=== PATIENT | male | born 1970 | race Caucasian/White ===

== ENCOUNTER 2018-05-17 07:17 | Observation (INO) ==
[2018-05-17] MEDS ORDERED: 0.9 % Sodium Chloride 1,000 ML IVC ONE (08:06)
--- NOTE | 2018-05-17 08:10 | Emergency Department Note ---
Disposition Clinical Impression: Ureterolithiasis Disposition: Admitted As Inpatient Condition: Undetermined Referrals: NONE,PCP [Primary Care Provider] - Forms: ED Satisfaction Letter, Work/School Release Time of Disposition: 10:07 Abdominal Pain HPI - General Chief Complaint: ED Abdominal Pain Stated Complaint: Kidney Stones Time Seen by Provider: 05/17/18 07:24 Source: patient, EMS Mode of arrival: EMS Limitations: no limitations Nursing Notes Reviewed: Yes Vital Signs Reviewed: Yes - History of Present Illness HPI Narrative: 48-year-old male with extensive history of kidney stones arrives to the emergency Department roughly 1.5 week after last ED visit for similar complaint. The patient is complaining of new left flank pain from previous visit. Previous visit roughly 1.5 weeks ago, the patient was noted to have a 5 mm right ureteral stone. Patient's urinalysis at that time revealed no signs of infection but culture grew Klebsiella. It seems clinically relevant as there are 10,000-100,000 colony-forming units. The patient states he is still able to angulate. The patient denies any dysuria or fevers. Patient denies any other complaints at this time. The patient has an appointment set up in roughly 7 days with urologist, Dr. Barnes. He is seen him in the past. He denies any other complaints at this time. Pain Scale: 10 - Related Data Previous Rx's Medication Instructions Recorded Cyclobenzaprine [Flexeril] 10 mg PO TID #15 tablet 12/08/16 Diclofenac Sodium [Voltaren] 50 mg PO Q8HR #30 tablet. 12/08/16 Tramadol HCl [Ultram] 50 mg PO Q6HR PRN #20 tab 12/08/16 Ondansetron ODT [Zofran ODT] 4 mg SL Q8HR PRN #12 tab.rapdis 02/04/17 Oxycodone HCl/Acetaminophen 1 each PO Q6HR PRN #8 tablet 02/04/17 [Percocet 5-325 mg Tablet] Dicyclomine [Bentyl] 20 mg PO QID #20 capsule 02/05/17 Ondansetron ODT [Zofran ODT] 4 mg SL Q6HR PRN #30 tab.rapdis 02/23/17 Naproxen [Naprosyn] 500 mg PO BID PRN #20 tablet 04/30/18 Ketorolac [Toradol] 10 mg PO Q6HR PRN #14 tablet 05/08/18 Ondansetron ODT [Zofran ODT] 4 mg SL Q6HR PRN #14 tab.rapdis 05/08/18 Oxycodone HCl/Acetaminophen 1 each PO Q4-6H PRN 2 Days #10 05/10/18 [Percocet 5-325 mg Tablet] tablet Allergies Allergy/AdvReac Type Severity Reaction Status Date / Time ibuprofen AdvReac Nausea Verified 05/17/18 07:20 All systems ED: reviewed and negative except as stated. Constitutional: Reports: weakness. Denies: fever, chills ENT ED: Denies: dysphagia Cardiovascular: Denies: chest pain Respiratory: Denies: dyspnea Gastrointestinal: Reports: abdominal pain, nausea. Denies: vomiting, diarrhea, constipation, hematemesis, melena, hematochezia Genitourinary: Reports: dysuria. Denies: urgency, frequency, hematuria, testicular pain, testicular mass Musculoskeletal: Denies: back pain, neck pain Integumentary: Denies: rash Neurological: Denies: headache Abdominal Pain PMH - Past Medical History Medical history: Reports: hyperlipidemia, kidney stones Male Surgical History: Reports: non-contributory, other Psychiatric history: Reports: anxiety - Social History Smoking status: Current every day smoker Alcohol use: Reports: occasionally Drug use: Reports: marijuana Physical Exam - General Limitations: no limitations General appearance: alert, in no apparent distress - Head Head exam: atraumatic, normocephalic, normal inspection - Eye Eye exam: Present: normal appearance, PERRL, EOMI - ENT ENT exam: normal exam, normal oropharynx, mucous membranes moist - Neck Neck exam: Present: normal inspection, full ROM, trachea midline - Chest Chest inspection: Present: normal inspection, symmetric chest wall rise - Respiratory Respiratory exam: Present: normal lung sounds bilaterally - Cardiovascular Cardiovascular exam: Present: regular rate, normal rhythm, normal heart sounds - Abdominal Exam Abdominal exam: Present: soft, Non-Tender. Absent: tenderness, distention, guarding, rebound, rigidity, pulsatile mass, hernia - Extremities Exam Extremities exam: Present: normal inspection, full ROM. Absent: tenderness, pedal edema - Back Exam Back exam: Present: normal inspection, full ROM. Absent: tenderness - Neurological Exam Neurological exam: Present: alert, oriented X3 - Skin Skin exam: Present: warm, dry, intact, normal color Course Vital Signs Temperature 98.2 F 05/17/18 07:20 Pulse Rate 90 05/17/18 07:20 Respiratory Rate 16 05/17/18 07:20 Blood Pressure 155/103 05/17/18 07:20 O2 Sat by Pulse Oximetry 99 05/17/18 07:20 Temperature 98.2 F 05/17/18 07:20 Pulse Rate 90 05/17/18 07:20 Respiratory Rate 16 05/17/18 07:20 Blood Pressure 155/103 05/17/18 07:20 O2 Sat by Pulse Oximetry 99 05/17/18 07:20 Oxygen Delivery Oxygen Delivery Room Air Abdominal Pain - MDM Narrative Medical decision making narrative: Patient's CT scan demonstrates a right sided ureteral stone. In addition the patient has no signs of urinary tract infection today and a normal creatinine and kidney function. The case was discussed with Dr. Ludwig in urology who recommended that the patient be admitted with continued symptoms. He stated that we should admit the patient to the hospitalist and he will see the patient consultation with likely stone removal tomorrow. The patient was made aware and agrees to plan. No further questions or concerns are noted at this time. We will admit the patient to the hospitalist, Dr. Stephens. - Medical Records Medical records reviewed: Yes I reviewed the patient's medical records. - Lab Data Lab results reviewed: Yes I reviewed the patient's lab results. Result diagrams: 05/17/18 07:55 05/17/18 07:55 Lab Results 05/17/18 05/17/18 05/17/18 Range/Units 07:55 07:55 07:55 Hgb 15.7 (12.9-16.9) g/dL Hct 44.3 (37.5-50.1) % Plt Count 186 (140-400) K/mcL Sodium 138 (136-145) mEq/L Potassium 4.0 (3.5-5.1) mEq/L Chloride 107 (98-107) mEq/L Carbon Dioxide 24 (23-29) mEq/L BUN 9 (6-20) mg/dL Creatinine 0.65 L (0.70-1.30) mg/dL Est GFR ( Amer) > 60 (> 60) Est GFR (Non-Af Amer) > 60 (> 60) BUN/Creatinine Ratio 14 (6-26) Glucose 90 (70-105) mg/dL Calculated Osmolality 284 (280-300) Calcium 9.0 (8.6-10.3) mg/dL Urine Color Yellow (Yellow) Urine Clarity Turbid A (Clear) Urine pH 7.5 (5.0-8.0) pH Units Ur Specific [place] 1.016 (1.010-1.025) Urine Protein Negative (Neg-Trace) mg/dL Urine Glucose (UA) Normal (Normal) mg/dL Urine Ketones Negative (Negative) mg/dL Urine Blood Negative (Negative) Urine Nitrite Negative (Negative) Urine Bilirubin Negative (Negative) Urine Urobilinogen Normal (Normal) mg/dL Ur Leukocyte Esterase Negative (Negative) Urine Microscopic RBC 3-5 H (0-3) per hpf Urine Microscopic WBC 0-3 (0-3) per hpf Ur Squamous Epith Cells None Seen (None-Few) per lpf Urine Bacteria None Seen (None-Few) per hpf Hyaline Casts None Seen (None-Few) per lpf Ur Culture Indicated? NO (NO) - Radiology Data Radiology results reviewed: Yes I reviewed the patient's radiology results. Abdomen/Pelvis CT 05/17/18 08:06 IMPRESSION: 1. 4 mm calculus in the distal right ureter without significant proximal hydroureteronephrosis. 2. Additional bilateral nonobstructing renal calculi. No left ureteral calculi. No left hydronephrosis. 3. 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 D/ / Sergio Pineda / Sergio Pineda Interpreting Provider: Sergio Pineda
[2018-05-17 08:19] LABS: Bilirubin,Urine Negative (Negative); Blood,Urine Negative (Negative); Clarity,Urine Turbid (Clear); Color,Urine Yellow (Yellow); Glucose,Urine (UA) Normal (Normal); Ketones,Urine Negative (Negative); Leukocyte Esterase,Urine Negative (Negative); Nitrite,Urine Negative (Negative); PH,Urine 7.5 pH Units (5.0-8.0); Protein,Urine Negative (Neg-Trace); Specific Gravity,Urine 1.016 (1.010-1.025); Urobilinogen,Urine Normal (Normal)
[2018-05-17 08:21] LABS: Hematocrit 44.3 % (37.5-50.1); Hemoglobin 15.7 g/dL (12.9-16.9)
[2018-05-17 08:24] LABS: Bacteria,Urine None Seen per hpf (None-Few); Hyaline Casts,Urine None Seen per lpf (None-Few); Squamous Epithelial Cell,Urine None Seen per lpf (None-Few); WBC,Urine 0-3 per hpf (0-3)
[2018-05-17 08:35] LABS: BUN/Creatinine Ratio 14 (6-26); Blood Urea Nitrogen 9 mg/dL (6-20); Carbon Dioxide 24 mEq/L (23-29); Chloride 107 mEq/L (98-107); Glucose 90 mg/dL (70-105); Osmolality,Calculated 284 (280-300); Sodium 138 mEq/L (136-145); eGFR For Non-African Americans > 60 (> 60)
[2018-05-17] MEDS ORDERED: cefTRIAXone 1,000 MG in Water for inj. (sterile) 20 ML 10 ML IVP ONE (10:00)
[2018-05-17] MEDS ORDERED: *HR* FentaNYL (PF) 100 MCG/2 ML VIAL IVP ONE (10:00)
--- NOTE | 2018-05-17 10:55 | Emergency Department Note ---
Disposition Clinical Impression: Ureterolithiasis Disposition: Admitted As Inpatient Condition: Undetermined General Adult HPI - General Chief complaint: ED Abdominal Pain Stated complaint: Kidney Stones Time Seen by Provider: 05/17/18 07:24 Source: patient, EMS Mode of arrival: EMS Limitations: no limitations - History of Present Illness Pain Scale: 10 - Related Data Home Medications Medication Instructions Recorded Confirmed Simvastatin [Zocor] 40 mg PO HS 05/17/18 05/17/18 Allergies Allergy/AdvReac Type Severity Reaction Status Date / Time ibuprofen AdvReac Nausea Verified 05/17/18 07:20 Constitutional: Reports: weakness. Denies: fever, chills ENT ED: Denies: dysphagia Cardiovascular: Denies: chest pain Respiratory: Denies: dyspnea Gastrointestinal: Reports: abdominal pain, nausea. Denies: vomiting, diarrhea, constipation, hematemesis, melena, hematochezia Genitourinary: Reports: dysuria. Denies: urgency, frequency, hematuria, testicular pain, testicular mass Musculoskeletal: Denies: back pain, neck pain Integumentary: Denies: rash Neurological: Denies: headache Past Medical History - Past Medical History Medical history: Reports: hyperlipidemia, kidney stones Psychiatric history: Reports: anxiety - Social History Smoking Status: Current every day smoker Smokeless Tobacco Status: No Alcohol use: Reports: occasionally Drug use: Reports: marijuana Physical Exam - General Limitations: no limitations General appearance: alert, in no apparent distress Course Vital Signs Temperature 98.2 F 05/17/18 07:20 Pulse Rate 90 05/17/18 07:20 Respiratory Rate 16 05/17/18 07:20 Blood Pressure 155/103 05/17/18 07:20 O2 Sat by Pulse Oximetry 99 05/17/18 07:20 Temperature 98.2 F 05/17/18 07:20 Pulse Rate 90 05/17/18 07:20 Respiratory Rate 16 05/17/18 07:20 Blood Pressure 155/103 05/17/18 07:20 O2 Sat by Pulse Oximetry 99 05/17/18 07:20 Oxygen Delivery Oxygen Delivery Room Air Medical Decision Making - Lab Data Result diagrams: 05/17/18 07:55 05/17/18 07:55 Lab Results 05/17/18 05/17/18 05/17/18 Range/Units 07:55 07:55 07:55 Hgb 15.7 (12.9-16.9) g/dL Hct 44.3 (37.5-50.1) % Plt Count 186 (140-400) K/mcL Sodium 138 (136-145) mEq/L Potassium 4.0 (3.5-5.1) mEq/L Chloride 107 (98-107) mEq/L Carbon Dioxide 24 (23-29) mEq/L BUN 9 (6-20) mg/dL Creatinine 0.65 L (0.70-1.30) mg/dL Est GFR ( Amer) > 60 (> 60) Est GFR (Non-Af Amer) > 60 (> 60) BUN/Creatinine Ratio 14 (6-26) Glucose 90 (70-105) mg/dL Calculated Osmolality 284 (280-300) Calcium 9.0 (8.6-10.3) mg/dL Urine Color Yellow (Yellow) Urine Clarity Turbid A (Clear) Urine pH 7.5 (5.0-8.0) pH Units Ur Specific [place] 1.016 (1.010-1.025) Urine Protein Negative (Neg-Trace) mg/dL Urine Glucose (UA) Normal (Normal) mg/dL Urine Ketones Negative (Negative) mg/dL Urine Blood Negative (Negative) Urine Nitrite Negative (Negative) Urine Bilirubin Negative (Negative) Urine Urobilinogen Normal (Normal) mg/dL Ur Leukocyte Esterase Negative (Negative) Urine Microscopic RBC 3-5 H (0-3) per hpf Urine Microscopic WBC 0-3 (0-3) per hpf Ur Squamous Epith Cells None Seen (None-Few) per lpf Urine Bacteria None Seen (None-Few) per hpf Hyaline Casts None Seen (None-Few) per lpf Ur Culture Indicated? NO (NO) Attestation Statement - Attestation Attestation: I examined this patient and my medical decision-making was reviewed with the Resident Physician. I agree with the documented findings, disposition and treatment plan as described except to the extent set forth below. Nontoxic-appearing male complaining of moderate discomfort from a kidney stone diagnosed a week and a half ago. He had a 5 mm mid ureteral stone at that point. Repeat scan shows it in a similar position with mild hydronephrosis. Urine culture from last time grew Klebsiella, 10,000-100,000 CFU use. He has no fever. Vomits when he has pain, which is consistent with his prior kidney stones. Nontender abdomen on my exam. Presentation not consistent with pyelonephritis. Not tachycardic or hypotensive. Pain treated in the ED, Dr. Jama spoke with urology who requested admission to the hospitalist service. This was arranged.
[2018-05-17] MEDS ORDERED: Acetaminophen 325 MG TABLET PO PRN (11:56)
[2018-05-17] MEDS ORDERED: Naloxone 0.4 MG/ML INJ IVP PRN (11:56)
[2018-05-17] MEDS: 0.9 % Sodium Chloride 1,000 ML IVC SCH ×2 (12:50→22:57)
--- NOTE | 2018-05-17 12:51 | Internal Med History&Physical ---
Date of Encounter: 05/17/18 Time of Encounter: 11:00 Internal Medicine - H&P: HPI Chief complaint: Left flank pain Admitted From: Home Plans for Post Hospital Care: Home History of present illness: Mr. Pinon is a 48 year old male presented to ER for left flank pain for about 10 days. Past medical history is significant for kidney stone. Patient said she has left flank pain. The pain is a sharp, 10 out of 10, radiated to left groin area. Patient denies fever. He has nausea and vomited once today. The vomiting is stomach content, no blood or coffee ground color. Patient has intermittent dysuria or discomfort during urination. His urine culture 1 week ago shows positive for Klebsiella. In the emergency room, CT abdominal has been done, which shows bilateral kidney stone and left ureter nonobstructive stone 4mm. urology was called by ER, plan for stone removal tomorrow. Patient was admitted for pain management and urology procedure. Past Med Surg Social Fam HX - Past Medical History Medical history: hyperlipidemia, kidney stones Psychiatric history: anxiety - Past Surgical History Additional surgical history: kidney stone procedure - Social History Smoking Status: Current every day smoker Smokeless Tobacco Status: No Alcohol use: occasionally Drug use: marijuana - Family History Mother Living Status: Hx Family Cardiac Disorders: Yes (HTN) Hx Family Respiratory Disorders: Yes (COPD) Hx Family Cancer: Yes (Lymph) Hx Family GI Disorders: Yes Hx Family Endocrine Disorder: No Hx Family Neuromuscular Disorders: No Hx Family Neurologic Disorders: No Hx Family HEENT Disorders: No Hx Family Autoimmune Disorders: No Internal Medicine - H&P: Meds Simvastatin [Zocor] 40 mg PO HS 05/17/18 [History] 3 Allergy/AdvReac Type Severity Reaction Status Date / Time ibuprofen AdvReac Nausea Verified 05/17/18 07:20 All Systems PM: A 10-system review of systems was performed and is negative for pertinent findings except as documented above in the HPI. - Constitutional Vitals: Temp Pulse Resp BP Pulse Ox 98.2 F 71 18 144/89 96 05/17/18 11:34 05/17/18 11:34 05/17/18 11:34 05/17/18 11:34 05/17/18 11:34 General appearance: Present: mild distress, A&O X 3, answers questions appropriately - Head Head exam: Present: atraumatic, normocephalic - Eye Eye exam: Present: PERRL, conjuntiva pink, sclera anicteric Pupils: Present: PERRL - Neck Neck exam general surgery: Present: supple, trachea midline. Absent: lymphadenopathy - Respiratory Respiratory exam: Present: CTAB. Absent: accessory muscle use, rales, rhonchi, wheezes - Cardiovascular Cardiovascular exam: Present: RRR, +S1, +S2. Absent: diastolic murmur, gallop, rubs, systolic murmur - GI/Abdominal GI/Abdominal exam: Present: normal bowel sounds, soft, no peritoneal signs. Absent: distended, tenderness Additional comments: Bilateral flank tenderness, left > right - Extremities Exam Extremities exam: Present: warm, radial pulses palpable and symmetrical. Absent : calf tenderness, cyanotic, pedal edema - Neurological Exam Neurological exam: Present: CN II-XII intact, oriented X3, no focal deficits. Absent: pronater drift, facial droop, speech deficit - Skin Skin exam: Present: dry, intact Internal Med - H&P Results - Labs CBC & Chem 7: 05/17/18 07:55 05/17/18 07:55 - Assessment and plan (1) UTI (urinary tract infection) Current Visit: Yes Status: Acute Assessment and plan: Patient has dysuria and discomfort on urination. Urine culture 1 week ago shows positive for Klebsiella, sensitive to Rocephin. Will place patient on Rocephin IV. Qualifiers: Urinary tract infection type: acute cystitis Hematuria presence: without hematuria Qualified Code(s): N30.00 - Acute cystitis without hematuria (2) Ureterolithiasis Current Visit: Yes Status: Acute Assessment and plan: Urology was consult. Continue pain management. (3) Bilateral kidney stones Current Visit: No Status: Acute Assessment and plan: Management as above. Place patient on by mouth Flomax to relax smooth muscle and facility stone removal. (4) Left flank pain Current Visit: No Status: Acute Assessment and plan: Most likely due to kidney stone. Urology consult. Patient is on Rocephin for UTI. - Time Spent With Patient Total time spent is greater than 50% in coordination of care (as documented) at patient's floor/unit and/or counseling patient: 30 minutes 25 - 35 minutes
--- NOTE | 2018-05-17 13:05 | Urology - Consult Note ---
<Allison Briseno N - Last Filed: 05/17/18 13:02> Date of Encounter: 05/17/18 Time of Encounter: 13:02 - Assessment and Plan (1) Ureteral stone with hydronephrosis Current Visit: Yes Status: Resolved Assessment and plan: Patient is a 48 year old male with a 4mm right distal ureteral stone. Patient has been evaluated multiple times in the Emergency Department. Ultimately, he is unable to achieve adequate pain control as an outpatient. Patient will remain NPO after midnight and be tentatively scheduled tomorrow for stone extraction. I have reviewed the risks and benefits of surgery, the patient agrees, has verbalized understanding, and he is prepared to undergo a right ureteroscopic stone extraction with holmium laser and basket retrieval, right ureteral stent placement on 05/18/18. Urology CN:HPI Reason for consult Urology: Other (right ureteral stone) History of present illness: Patient is a 48 year old male who presented to the emergency department with a distal 4mm right ureteral stone. Patient states right flank pain is currently controlled, but he is experiencing urgency, frequency, nausea, and hematuria. Patient denies fever or chills. Patient has experienced recurrent renal stones, stone extractions, and is a well known patient to Dr. Ludwig. Past Med Surg Social Fam HX - Past Medical History Medical history: hyperlipidemia, kidney stones Psychiatric history: anxiety - Past Surgical History Additional surgical history: kidney stone procedure - Social History Smoking Status: Current every day smoker Smokeless Tobacco Status: No Alcohol use: occasionally Drug use: marijuana - Family History Mother Living Status: Hx Family Cardiac Disorders: Yes (HTN) Hx Family Respiratory Disorders: Yes (COPD) Hx Family Cancer: Yes (Lymph) Hx Family GI Disorders: Yes Hx Family Endocrine Disorder: No Hx Family Neuromuscular Disorders: No Hx Family Neurologic Disorders: No Hx Family HEENT Disorders: No Hx Family Autoimmune Disorders: No Medications and Allergies Simvastatin [Zocor] 40 mg PO HS 05/17/18 [History] 3 Allergy/AdvReac Type Severity Reaction Status Date / Time ibuprofen AdvReac Nausea Verified 05/17/18 07:20 Review of Systems - Constitutional as per HPI, no chills, no fatigue, no fever(s), no weakness - EENT Nose, mouth and throat: no dizziness, no headache(s) - Cardiovascular no chest pain, no diaphoresis, no dyspnea - Respiratory no cough, no dyspnea - Gastrointestinal abdominal pain, nausea, no change in bowel habits, no vomiting - Genitourinary difficulty urinating, flank pain, hematuria, urinary frequency, urinary hesitancy, urinary urgency, no change in urinary stream, no dysuria, no urinary incontinence - Musculoskeletal back pain, no muscle weakness - Integumentary no erythema, no rash, no swelling - Neurological no confusion, no syncope, no weakness - Psychiatric no anxiety, no confusion Exam Initial Vital Signs Temp Pulse Resp BP Pulse Ox 98.2 F 90 16 155/103 99 05/17/18 07:20 05/17/18 07:20 05/17/18 07:20 05/17/18 07:20 05/17/18 07:20 - General physical appearance Present: well developed, well nourished, no distress, no pain - Eyes Present: PERRL, normal ocular movement - ENT Present: normal nares. Absent: no hearing loss - Neck Present: no masses, trachea midline - Respiratory Present: normal respiratory effort - Cardiovascular Cardiovascular exam IM: RRR - Abdomen Abdomen: Present: soft, non tender - Genitourinary other (mild right CVAT) - Integumentary Present: no rash, no abnormal pigmentation - Neurologic Present: normal coordination. Absent: disoriented, confused - Musculoskeletal Present: other (no pedal edema ) Urology Results - Labs 05/17/18 07:55 05/17/18 07:55 Abnormal lab results Creatinine 0.65 mg/dL (0.70-1.30) L 05/17/18 07:55 Urine Clarity Turbid (Clear) A 05/17/18 07:55 Urine Microscopic RBC 3-5 per hpf (0-3) H 05/17/18 07:55 All other labs normal. - Imaging CT scan - abdomen: report reviewed, image reviewed CT scan - pelvis: report reviewed, image reviewed Consult Discharge Plan - Plan Referrals: NONE,PCP [Primary Care Provider] - <Jese Ludwig - Last Filed: 05/17/18 16:25> Date of Encounter: 05/17/18 - Assessment and Plan (1) Ureteral stone with hydronephrosis Current Visit: Yes Status: Resolved Assessment and plan: pt seen and examined. I agree with Allison Briseno's assessment. plan to proceed with stone extraction in the AM. pt was feeling better this afternoon. strain all urine. Exam Initial Vital Signs Temp Pulse Resp BP Pulse Ox 98.2 F 90 16 155/103 99 05/17/18 07:20 05/17/18 07:20 05/17/18 07:20 05/17/18 07:20 05/17/18 07:20 Urology Results - Labs 05/17/18 07:55 08 07:55 Abnormal lab results Creatinine 0.65 mg/dL (0.70-1.30) L 05/17/18 07:55 Urine Clarity Turbid (Clear) A 05/17/18 07:55 Urine Microscopic RBC 3-5 per hpf (0-3) H 05/17/18 07:55 All other labs normal.
[2018-05-17] MEDS: *HR* OxyCODONE Immed Rel 5 MG TABLET PO PRN ×2 (14:11→20:22)
[2018-05-17] MEDS: *HR* HYDROcodone/Acet 5/325 mg TABLET PO PRN (18:04)
[2018-05-18] MEDS: *HR* HYDROcodone/Acet 5/325 mg TABLET PO PRN ×3 (00:05→14:21)
[2018-05-18] MEDS: *HR* OxyCODONE Immed Rel 5 MG TABLET PO PRN ×3 (03:33→15:49)
[2018-05-18 06:12] LABS: Prothrombin Time 11.7 Seconds (9.4-12.1)
[2018-05-18 06:46] LABS: BUN/Creatinine Ratio 13 (6-26); Blood Urea Nitrogen 10 mg/dL (6-20); Calcium 8.6 mg/dL (8.6-10.3); Carbon Dioxide 23 mEq/L (23-29); Chloride 109 mEq/L (98-107); Glucose 90 mg/dL (70-105); Osmolality,Calculated 283 (280-300); Sodium 137 mEq/L (136-145); eGFR For Non-African Americans > 60 (> 60)
[2018-05-18 06:52] LABS: Basophils % 0.4 %; Eosinophils # 0.3 K/mcL (0.0-0.6); Eosinophils % 3.8 %; Hematocrit 45.6 % (37.5-50.1); Hemoglobin 16.1 g/dL (12.9-16.9); Immature Granulocytes % 0.9 % (0-4); Lymphocytes # 1.2 K/mcL (0.6-4.6); Lymphocytes % 18.1 %; Mean Corpuscular HGB Conc 35.3 g/dL (31.6-35.5); Mean Corpuscular Hemoglobin 34.7 pg (28.0-33.3); Mean Corpuscular Volume 98.3 fL (83.0-100.0); Mean Platelet Volume 11.4 fL (9.4-12.4); Monocytes # 0.6 K/mcL (0.0-1.3); Monocytes % 8.7 %; Neutrophils # 4.6 K/mcL (1.6-8.9); Platelet Count 160 K/mcL (140-400); Red Blood Count 4.64 M/mcL (4.19-5.50); Segmented Neutrophils % 68.1 %
[2018-05-18] MEDS ORDERED: cefTRIAXone 1,000 MG in Water for inj. (sterile) 20 ML 10 ML IVP SCH (09:00)
--- NOTE | 2018-05-18 09:47 | Internal Med Progress Note ---
Hospitalist Progress Note - Encounter Date of Encounter: 05/18/18 Time of Encounter: 09:40 - Subjective Interval History: No acute events overnight. Seen by urology - Exam Vitals: Temp Pulse Resp BP Pulse Ox 97.9 F 61 189 147/94 95 05/18/18 08:12 05/18/18 08:12 05/18/18 08:12 05/18/18 08:12 05/18/18 08:12 Exam: Gen. NAD HEENT. PEERLA CVS. S1 S2 WNL Resp. CTAB . Right flank tenderness NEURO. GCS 15 - Assessment and Plan (1) Ureterolithiasis Current Visit: Yes Status: Acute Assessment and Plan: Urology was consulted and plan for right ureteroscopic stone extraction with holmium laser and basket retrieval, right ureteral stent placement on 05/18/18. NPO from midnight (2) Bilateral kidney stones Current Visit: No Status: Acute Assessment and Plan: Management as above. Place patient on by mouth Flomax to relax smooth muscle and facility stone removal. (3) UTI (urinary tract infection) Current Visit: Yes Status: Acute Assessment and Plan: Patient has dysuria and discomfort on urination. Urine culture 1 week ago shows positive for Klebsiella, sensitive to Rocephin. Continue on rocephin. - Time Spent with Patient Total time spent is greater than 50% in coordination of care (as documented) at patient's floor/unit and/or counseling patient: Internal Medicine: Result - Labs CBC & Chem 7: 05/18/18 05:40 05/18/18 05:40 Labs: Short CBC 05/18/18 Range/Units 05:40 WBC 6.8 (4.3-11.1) K/mcL Hgb 16.1 (12.9-16.9) g/dL Hct 45.6 (37.5-50.1) % Plt Count 160 (140-400) K/mcL Neutrophils # 4.6 (1.6-8.9) K/mcL BMP 05/18/18 05:40 Sodium 137 Potassium 4.0 Chloride 109 H Carbon Dioxide 23 BUN 10 Creatinine 0.76 Glucose 90 Calcium 8.6 - ABG Interpretation ABG results: PT/INR, D-dimer PT 11.7 Seconds (9.4-12.1) 05/18/18 05:40 Consult Discharge Plan - Plan Referrals: NONE,PCP [Primary Care Provider] - (3) UTI (urinary tract infection) Qualifiers: Urinary tract infection type: acute cystitis Hematuria presence: without hematuria Qualified Code(s): N30.00 - Acute cystitis without hematuria
--- NOTE | 2018-05-18 11:35 | Urology Progress Note ---
Date of Encounter: 05/18/18 Time of Encounter: 11:33 - Assessment and Plan (1) Ureteral stone with hydronephrosis Current Visit: Yes Status: Resolved Assessment and plan: Patient is a 48-year-old male who presents with a 4 mm right distal ureteral stone. The patient is awaiting stone extraction surgery for this evening, and he has no new concerns or questions. Progress Note Subjective: no new complaints, still having pain, voiding w/o difficulty, afebrile, hematuria Narrative: Patient seen and examined sitting upright in bed in no apparent distress. Patient states he is continuously straining his urine and has not visualize any stones. Patient states pain is well-controlled at the moment. Patient denies fever, chills, or worsening hematuria. Patient is consented for surgery and nothing by mouth status. Objective Initial Vital Signs Temp Pulse Resp BP Pulse Ox 98.2 F 90 16 155/103 99 05/17/18 07:20 05/17/18 07:20 05/17/18 07:20 05/17/18 07:20 05/17/18 07:20 - General physical appearance Present: well developed, well nourished, no distress, no pain - Respiratory Present: normal expansion, normal respiratory effort - Abdomen Present: soft, non tender - Integumentary Present: no rash, no abnormal pigmentation - Musculoskeletal Present: normal posture - Psychiatric Present: oriented to time, oriented to person, oriented to place, speech is normal, memory intact - Labs 05/18/18 05:40 05/18/18 05:40 Diabetes panel 05/18/18 Range/Units 05:40 Sodium 137 (136-145) mEq/L Potassium 4.0 (3.5-5.1) mEq/L Chloride 109 H (98-107) mEq/L Carbon Dioxide 23 (23-29) mEq/L BUN 10 (6-20) mg/dL Creatinine 0.76 (0.70-1.30) mg/dL Glucose 90 (70-105) mg/dL Calcium 8.6 (8.6-10.3) mg/dL Calcium panel 05/18/18 Range/Units 05:40 Calcium 8.6 (8.6-10.3) mg/dL Pituitary panel 05/18/18 Range/Units 05:40 Sodium 137 (136-145) mEq/L Potassium 4.0 (3.5-5.1) mEq/L Chloride 109 H (98-107) mEq/L Carbon Dioxide 23 (23-29) mEq/L BUN 10 (6-20) mg/dL Creatinine 0.76 (0.70-1.30) mg/dL Glucose 90 (70-105) mg/dL Calcium 8.6 (8.6-10.3) mg/dL Adrenal panel 05/18/18 Range/Units 05:40 Sodium 137 (136-145) mEq/L Potassium 4.0 (3.5-5.1) mEq/L Chloride 109 H (98-107) mEq/L Carbon Dioxide 23 (23-29) mEq/L BUN 10 (6-20) mg/dL Creatinine 0.76 (0.70-1.30) mg/dL Glucose 90 (70-105) mg/dL Calcium 8.6 (8.6-10.3) mg/dL Consult Discharge Plan - Plan Referrals: NONE,PCP [Primary Care Provider] -
[2018-05-18] MEDS ORDERED: Isovue-300 50 ML VIAL IVP ONE (17:24)
[2018-05-18] MEDS ORDERED: *HR* Heparin 5,000 UNIT/ML VIAL SQ SCH (18:00)
[2018-05-18] MEDS ORDERED: Lidocaine -MPF 2% 2 ML VIAL ONE (18:10)
[2018-05-18] MEDS ORDERED: Dexamethasone 4 MG/ML VIAL ONE (18:10)
[2018-05-18] MEDS ORDERED: Ondansetron 4 MG/2 ML VIAL ONE (18:10)
[2018-05-18] MEDS ORDERED: *HR* Propofol 200 MG/20 ML VIAL IVP ONE (18:10)
[2018-05-18] MEDS ORDERED: *HR* Midazolam HCl 2 MG/2 ML VIAL ONE (18:10)
[2018-05-18] MEDS ORDERED: *HR* FentaNYL (PF) 100 MCG/2 ML VIAL ONE (18:10)
--- NOTE | 2018-05-18 18:16 | Anesthesia Evaluation PreOp ---
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 Any Significant HX Other Medical History: Renal (Hx kidney stones) Anesthesia History: No Prior Anesthetic Complications, Past Anesthesia ( Multiple kidney stone procedures) Alcohol Use: occasionally Drug use: marijuana Medications and Allergies Simvastatin [Zocor] 40 mg PO HS 05/17/18 [History] 3 Allergy/AdvReac Type Severity Reaction Status Date / Time ibuprofen AdvReac Nausea Verified 05/17/18 07:20 - Meds/Allergy Pre-op Review Medications Reviewed: Yes Allergies Reviewed: Yes Beta Blockers on Current Med List: No Anesthesia Results - Labs 05/18/18 05:40 05/18/18 05:40 Laboratory Results Impressions Abdomen/Pelvis CT 05/17/18 08:06 IMPRESSION: 1. 4 mm calculus in the distal right ureter without significant proximal hydroureteronephrosis. 2. Additional bilateral nonobstructing renal calculi. No left ureteral calculi. No left hydronephrosis. 3. 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 D/ / Sergio Pineda / Sergio Pineda Interpreting Provider: Sergio Pineda - Imaging EKG: image reviewed (83bpm - SINUS RHYTHM VOLTAGE CRITERIA FOR LVH, CONSIDER NORMAL VARIANT Electronically Signed On 02-01-2018 7:24:04 EDT by Pedro Longo) Anesthesia Exam Vital Signs Temp Pulse Resp BP Pulse Ox 05/18/18 15:14 97.8 F 61 18 146/93 100 05/18/18 08:12 97.9 F 61 189 147/94 95 05/18/18 06:06 98.1 F 58 17 140/97 96 05/18/18 00:32 97.7 F 59 17 134/90 96 05/17/18 19:45 98.1 F 61 17 128/82 94 Intake and Output 05/18/18 05/18/18 05/18/18 07:59 15:59 23:59 Intake Total 0 / 0 Balance 0 / 0 Intake: Oral 0 / 0 Other: Meal NPO NPO Percent of Meal Consumed 0% Weight 83.5 kg Patient Weight 05/18/18 23:59 Weight 83.5 kg Height: 5'10" Weight: 184# BMI = 26 NPO (# of Hours): MNoc - HEENT Pupil (Motor): Pupils equal, EOMI Mallampati: II Teeth: Missing, Poor dentition Oral Opening: Greater than 3 - MAPPING TECHNICIAN LOC: Oriented MAPPING TECHNICIAN Motor: Normal RUE, Normal LUE, Normal RLE, Normal LLE, Normal Face MAPPING TECHNICIAN Sensory: Normal: RUE, LUE, RLE, LLE, Face - Cardiac Rhythm: Regular Murmur: None - Pulmonary Breath Sounds: bilateral Clear Respiratory Effort: Symmetrical Anesthesia Assess/Plan ASA Score: 2, E Modified Edyta Scale for Level of Consciousness: Cooperative, oriented, and tranquil Anesthetic Plan: General Monitoring Plan: Standard Monitors Recovery Plan: PACU Anes Supervising Prov Stmt: PT seen/evaluated, R&B Discussed, questions answered and consent obtained. Raul Miller MD
[2018-05-18] MEDS ORDERED: Ondansetron 4 MG/2 ML VIAL IVP ONE ×2 (18:46→20:43)
[2018-05-18] MEDS ORDERED: Naloxone 0.4 MG/ML INJ IVP PRN ×3 (18:46→20:43)
[2018-05-18] MEDS ORDERED: *HR* Meperidine 25 MG/ML SYRINGE IVP PRN (18:46)
[2018-05-18] MEDS ORDERED: Albuterol 2.5 MG/3 ML NEBULIZER IH ONE (18:46)
[2018-05-18] MEDS ORDERED: *HR* Promethazine 25 MG/ML VIAL IVP PRN (18:46)
[2018-05-18] MEDS ORDERED: Ringers Solution, Lactated 1,000 ML IVC SCH ×2 (19:00→20:43)
--- NOTE | 2018-05-18 19:10 | Operative Note ---
Date of procedure: 05/18/18 Pre-op diagnosis: 5 mm right distal ureteral stone Post-op diagnosis: same Procedure: Right ureteroscopic stone extraction Right retrograde pyelogram Right double-J stent placement Anesthesia: GETA Surgeon: Jese Ludwig Was there an assistant teaching professor present: No Estimated blood loss (cc): 0 Specimen: Stone Condition: stable Disposition: PACU Procedure in Detail: . PROCEDURE IN DETAIL: Patient was taken back to the operating room, positioned supine on the operating table. Anesthesia was applied without complication. They were moved into dorsal lithotomy. Careful attention was maintained to cushion all pressure points for patient's safety. They were prepped and draped in sterile fashion. Time-out was performed with the proper patient and procedure. A 21-Algerian rigid cystoscope was inserted into the bladder without difficulty. Systematic examination of bladder revealed no abnormalities. The ureteral orifice was cannulated using a 5-Algerian ureteral Catheter and a retrograde pyelogram was performed using Isovue. A filling defect was identified which corresponded to the stone. At that point, a zip wire was placed through the 5-Algerian and confirmed in the renal pelvis with fluoroscopy. At that point, the stone was encountered and I was able to basket the stone without performing laser lithotripsy. All stone in the ureter was removed. A 4.8 x 26 ureteral stent was placed over the zip wire under fluoroscopy without complication. The bladder was drained along with the stone fragments. The stone was collected for analysis. The string was left attached to the stent and secured to the patient for easy removal in approximately 72 hours
[2018-05-18] MEDS: *HR* Morphine 2 MG/ML SYRINGE IVP PRN ×2 (19:38→19:55)
--- NOTE | 2018-05-18 20:39 | Anesthesia Evaluation Post Op ---
Date of Encounter: 05/18/18 Time of Encounter: 20:38 - Vital Signs Vital Signs: Vital Signs/O2 Sat, Most Current Temp Pulse Resp BP Pulse Ox 97.8 F 54 16 145/99 97 05/18/18 20:23 05/18/18 20:23 05/18/18 20:23 05/18/18 20:23 05/18/18 20:23 - Lungs Lungs: Clear Ascult./Percussion - Airway Airway: Non-obstructed - Cardiovascular Regular Rate - Mental Status Mental Status: Alert & Oriented, Answers Appropriately - Pain Pain Scale: 2 Pain Scale used: Numeric (1 - 10) - Nausea Vomiting Nausea Vomiting: Not Present - Hydration Hydration: Ice chips, Able to void - Discharge PostOp Status: Transfer Patient to floor
[2018-05-18] MEDS ORDERED: Acetaminophen 325 MG TABLET PO PRN (20:43)
[2018-05-19] MEDS: *HR* HYDROcodone/Acet 5/325 mg TABLET PO PRN ×2 (01:31→07:59)
[2018-05-19] MEDS: *HR* Heparin 5,000 UNIT/ML VIAL SQ SCH ×2 (04:59→17:57)
[2018-05-19] MEDS: cefTRIAXone 1,000 MG in Water for inj. (sterile) 20 ML 10 ML IVP SCH (08:00)
--- NOTE | 2018-05-19 09:51 | Internal Med Progress Note ---
Hospitalist Progress Note - Encounter Date of Encounter: 05/19/18 Time of Encounter: 09:45 - Subjective Interval History: No acute events overnight. Seen by urology - Exam Vitals: Temp Pulse Resp BP Pulse Ox 97.9 F 75 17 142/100 98 05/19/18 05:13 05/19/18 05:13 05/19/18 05:13 05/19/18 05:13 05/19/18 05:13 Exam: Gen. NAD HEENT. PEERLA CVS. S1 S2 WNL Resp. CTAB . Right flank tenderness NEURO. GCS 15 - Assessment and Plan (1) Ureterolithiasis Current Visit: Yes Status: Acute Assessment and Plan: Urology was consulted and plan for right ureteroscopic stone extraction with holmium laser and basket retrieval, right ureteral stent placement on 05/18/18. 05/19. S/p right ureteroscopic stone extraction in last 24hr. Pain control PRN. F /U urology recs (2) Bilateral kidney stones Current Visit: No Status: Acute Assessment and Plan: Management as above. Place patient on by mouth Flomax to relax smooth muscle and facility stone removal. (3) UTI (urinary tract infection) Current Visit: Yes Status: Acute Assessment and Plan: Patient has dysuria and discomfort on urination. Urine culture 1 week ago shows positive for Klebsiella, sensitive to Rocephin. Continue on rocephin. DVT Prophylaxis: On heparin sc - Time Spent with Patient Total time spent is greater than 50% in coordination of care (as documented) at patient's floor/unit and/or counseling patient: Internal Medicine: Result - Labs CBC & Chem 7: 05/18/18 05:40 05/18/18 05:40 - ABG Interpretation ABG results: PT/INR, D-dimer PT 11.7 Seconds (9.4-12.1) 05/18/18 05:40 - Impressions Impressions Retrograde Pyelogram 05/18/18 00:00 IMPRESSION: Intraprocedural fluoroscopic spot images as above. See separate procedure report for more information. D/ / Enriqueta Sanchez Cha, MD / Enriqueta Sanchez Cha, MD Interpreting Provider: Enriqueta Sanchez Cha, MD - VTE Documentation of Mechanical Device: Intermittent pneumatic compression device Consult Discharge Plan - Plan Referrals: NONE,PCP [Primary Care Provider] - (3) UTI (urinary tract infection) Qualifiers: Urinary tract infection type: acute cystitis Hematuria presence: without hematuria Qualified Code(s): N30.00 - Acute cystitis without hematuria
[2018-05-19] MEDS: *HR* Promethazine 25 MG/ML VIAL IVP PRN (15:07)
[2018-05-19] MEDS: *HR* OxyCODONE Immed Rel 5 MG TABLET PO PRN ×2 (15:08→20:54)
[2018-05-20] MEDS: *HR* OxyCODONE Immed Rel 5 MG TABLET PO PRN (04:23)
[2018-05-20] MEDS: *HR* Promethazine 25 MG/ML VIAL IVP PRN (04:24)
[2018-05-20] MEDS: *HR* Heparin 5,000 UNIT/ML VIAL SQ SCH (06:37)
[2018-05-20 08:06] VITALS: BP 122/73
[2018-05-20] MEDS: cefTRIAXone 1,000 MG in Water for inj. (sterile) 20 ML 10 ML IVP SCH (08:21)
[2018-05-20 08:51] LABS: Basophils % 0.3 %; Eosinophils # 0.1 K/mcL (0.0-0.6); Eosinophils % 1.2 %; Hematocrit 49.7 % (37.5-50.1); Immature Granulocytes % 0.8 % (0-4); Lymphocytes # 2.1 K/mcL (0.6-4.6); Mean Corpuscular HGB Conc 34.2 g/dL (31.6-35.5); Mean Corpuscular Volume 99.4 fL (83.0-100.0); Mean Platelet Volume 11.6 fL (9.4-12.4); Monocytes # 0.8 K/mcL (0.0-1.3); Monocytes % 7.9 %; Neutrophils # 6.5 K/mcL (1.6-8.9); Platelet Count 182 K/mcL (140-400); Red Cell Distribution Width 13.9 % (11.5-14.5); Segmented Neutrophils % 67.8 %
[2018-05-20 09:02] LABS: BUN/Creatinine Ratio 18 (6-26); Blood Urea Nitrogen 17 mg/dL (6-20); Calcium 9.1 mg/dL (8.6-10.3); Carbon Dioxide 28 mEq/L (23-29); Chloride 106 mEq/L (98-107); Glucose 87 mg/dL (70-105); Osmolality,Calculated 287 (280-300); Potassium 3.9 mEq/L (3.5-5.1); Sodium 138 mEq/L (136-145); eGFR For Non-African Americans > 60 (> 60)
--- NOTE | 2018-05-20 09:36 | Discharge Summary ---
- NOTES TO OUTPATIENT PROVIDER Notes to Outpatient Provider: Follow up with urology Orders not resulted at time of discharge: Pending orders 05/18/18 19:08 Calculi (stone) Analysis Routine Surgical Pathology [PTH] Routine Date of Encounter: 05/20/18 Time of Encounter: 09:30 - Discharge Diagnosis (1) Ureterolithiasis Priority: Primary Status: Acute Assessment and Plan: Mr. Pinon is a 48 year old male presented to ER for left flank pain for about 10 days. Past medical history is significant for kidney stone. Patient complained of left flank pain. The pain was sharp, 10 out of 10, radiated to left groin area. Patient denies fever. He had nausea and vomiting. The vomiting is stomach content, no blood or coffee ground color. Patient has intermittent dysuria or discomfort during urination. In the emergency room, CT abdominal was done, which showed bilateral kidney stone and left ureter nonobstructive stone 4mm. Urology was consulted and did a right ureteroscopic stone extraction with holmium laser and basket retrieval, right ureteral stent placement on 05/18/18. He tolerated procedure well with no acute complications. Per urology he can follow up with them on tuesday to have string removed attached to stent. He was discharged in a stable condition (2) Bilateral kidney stones Priority: Secondary Status: Acute (3) UTI (urinary tract infection) Priority: Secondary Status: Acute Qualifiers: Urinary tract infection type: acute cystitis Hematuria presence: without hematuria Qualified Code(s): N30.00 - Acute cystitis without hematuria Hospital course: Mr. Pinon is a 48 year old male - Time Spent with Patient Total time spent providing and/or coordinating discharge services: - Discharge Medications Prescriptions: HYDROcodone/Acet 5/325 mg [[place] 5-325 mg] 1 tab PO Q6HR PRN 3 Days #10 tablet PRN Reason: Moderate Pain Docusate [Colace] 100 mg PO BID #30 capsule Home Medications: Simvastatin [Zocor] 40 mg PO HS 05/17/18 [History] Docusate [Colace] 100 mg PO BID #30 capsule 05/20/18 [Rx] HYDROcodone/Acet 5/325 mg [[place] 5-325 mg] 1 tab PO Q6HR PRN 3 Days #10 tablet 05/20/18 [Rx] Allergies/Adverse Reactions: 3 Allergy/AdvReac Type Severity Reaction Status Date / Time ibuprofen AdvReac Nausea Verified 05/17/18 07:20 Date of admission: 05/17/18 10:20 Primary care physician: PCP NONE - Constitutional Vitals: Temp Pulse Resp BP Pulse Ox 98.2 F 58 16 122/73 97 05/20/18 08:01 05/20/18 08:01 05/20/18 08:01 05/20/18 08:01 05/20/18 08:01 General appearance: Present: mild distress, A&O X 3, answers questions appropriately - Head Head exam: Present: atraumatic, normocephalic - Eye Eye exam: Present: PERRL, conjuntiva pink, sclera anicteric Pupils: Present: PERRL - Neck Neck exam general surgery: Present: supple, trachea midline. Absent: lymphadenopathy - Respiratory Respiratory exam: Present: CTAB. Absent: accessory muscle use, rales, rhonchi, wheezes - Cardiovascular Cardiovascular exam: Present: RRR, +S1, +S2. Absent: diastolic murmur, gallop, rubs, systolic murmur - GI/Abdominal GI/Abdominal exam: Present: normal bowel sounds, soft, no peritoneal signs. Absent: distended, tenderness - Extremities Exam Extremities exam: Present: warm, radial pulses palpable and symmetrical. Absent : calf tenderness, cyanotic, pedal edema - Neurological Exam Neurological exam: Present: CN II-XII intact, oriented X3, no focal deficits. Absent: pronater drift, facial droop, speech deficit - Skin Skin exam: Present: dry, intact - Patient Status Disposition: Home, Self-Care Condition: Good - Discharge Instructions Follow Up With: NONE,PCP [Primary Care Provider] - Forms: Work/School Release - VTE Documentation of Mechanical Device: Intermittent pneumatic compression device
[2018-05-24 10:53] LABS: Calculi Mass 17 mg
== END 2018-05-20 10:37 | disposition home or self-care (01) ==
LOC: EMEROOARM 07:17 → 2ANU 07:17
PROVIDERS: ADMIT Internal Medicine; ATTEND Internal Medicine

== ENCOUNTER 2019-07-14 07:33 | Inpatient (IN) ==
[2019-07-14] MEDS ORDERED: Metoclopramide 10 MG/2 ML VIAL IVP ONE (07:41)
[2019-07-14 09:03] LABS: Basophils % 0.2 %; Eosinophils # 1.3 K/mcL (0.0-0.6); Eosinophils % 9.4 %; Hematocrit 27.5 % (37.5-50.1); Hemoglobin 8.6 g/dL (12.9-16.9); Immature Granulocytes % 1.1 % (0-4); Lymphocytes # 1.2 K/mcL (0.6-4.6); Lymphocytes % 8.6 %; Mean Corpuscular HGB Conc 31.3 g/dL (31.6-35.5); Mean Corpuscular Hemoglobin 27.5 pg (28.0-33.3); Mean Corpuscular Volume 87.9 fL (83.0-100.0); Mean Platelet Volume 10.3 fL (9.4-12.4); Monocytes # 1.4 K/mcL (0.0-1.3); Monocytes % 10.1 %; Neutrophils # 9.6 K/mcL (1.6-8.9); Platelet Count 300 K/mcL (140-400); Red Blood Count 3.13 M/mcL (4.19-5.50); Red Cell Distribution Width 17.5 % (11.5-14.5); Segmented Neutrophils % 70.6 %; White Blood Count 13.5 K/mcL (4.3-11.1)
[2019-07-14 09:11] LABS: INR 1.4; Prothrombin Time 15.6 Seconds (9.4-12.1)
[2019-07-14 09:21] LABS: Calcium 9.2 mg/dL (8.6-10.3); Potassium 3.9 mEq/L (3.5-5.1)
[2019-07-14] MEDS ORDERED: 0.9 % Sodium Chloride 1,000 ML IVC ONE ×3 (09:25→10:23)
[2019-07-14 09:34] LABS: Bilirubin,Urine Negative (Negative); Blood,Urine Moderate (Negative); Clarity,Urine Cloudy (Clear); Color,Urine Yellow (Yellow); Glucose,Urine (UA) Normal (Normal); Ketones,Urine Negative (Negative); Leukocyte Esterase,Urine Large (Negative); Nitrite,Urine Negative (Negative); Protein,Urine 30 mg/dL (Neg-Trace); Specific Gravity,Urine 1.011 (1.010-1.025); Urobilinogen,Urine Normal (Normal)
[2019-07-14 09:36] LABS: Squamous Epithelial Cell,Urine Many per lpf (None-Few)
[2019-07-14] MEDS ORDERED: 0.9 % Sodium Chloride 1,000 ML ONE (09:56)
[2019-07-14] MEDS ORDERED: cefTRIAXone 1,000 MG in Water for inj. (sterile) 10 ML IVP ONE (10:02)
[2019-07-14 10:04] LABS: Granular Casts,Urine Few per lpf (None Seen)
[2019-07-14 10:05] LABS: Bacteria,Urine Many per hpf (None-Few); Calcium Oxalate Crystals,Urine Present; WBC,Urine 50-100 per hpf (0-3); Yeast,Urine Many per hpf (None Seen)
[2019-07-14] MEDS ORDERED: Meropenem 1,000 MG in Water for inj. (sterile) 20 ML IVP STA (10:18)
[2019-07-14] MEDS ORDERED: Bisacodyl 10 MG RECTAL SUPPOSITORY RC PRN (10:42)
[2019-07-14] MEDS ORDERED: Ondansetron 4 MG/2 ML VIAL IVP PRN (10:42)
[2019-07-14] MEDS ORDERED: Atropine Sulfate 1% 40 DROP/2 ML BOTTLE SL PRN (10:42)
[2019-07-14] MEDS ORDERED: Naloxone 0.4 MG/ML INJ IVP PRN (10:42)
[2019-07-14] MEDS: *HR* LORazepam 2 MG/ML VIAL IVP PRN ×2 (11:55→20:37)
[2019-07-14] MEDS: 0.9 % Sodium Chloride 1,000 ML IVC SCH ×2 (11:56→17:25)
[2019-07-14] MEDS: Morphine Sulfate 2 MG/ML SYRINGE IVP PRN ×4 (14:36→20:37)
[2019-07-15] MEDS: Morphine Sulfate 2 MG/ML SYRINGE IVP PRN ×7 (00:43→23:57)
[2019-07-15] MEDS: Ertapenem 1,000 MG in 0.9 % Sodium Chloride Mini Bag 100 ML IVPB SCH (07:49)
[2019-07-15] MEDS: *HR* LORazepam 2 MG/ML VIAL IVP PRN ×4 (07:49→21:57)
[2019-07-15 13:50] LABS: Acinetobacter baumannii by PCR Not Detected (Not Detect); Candida albicans by PCR Not Detected (Not Detect); Candida glabrata by PCR Not Detected (Not Detect); Candida krusei by PCR Not Detected (Not Detect); Candida parapsilosis by PCR Not Detected (Not Detect); Candida tropicalis by PCR Not Detected (Not Detect); Enterobacter cloacae Cmplx PCR Not Detected (Not Detect); Enterobacteriaceae by PCR Not Detected (Not Detect); Enterococcus by PCR Not Detected (Not Detect); Escherichia coli by PCR Not Detected (Not Detect); Klebsiella oxytoca by PCR Not Detected (Not Detect); Klebsiella pneumoniae by PCR Not Detected (Not Detect); Proteus by PCR Not Detected (Not Detect); Pseudomonas aeruginosa by PCR Not Detected (Not Detect); Serratia marcescens by PCR Not Detected (Not Detect); Staphylococcus aureus by PCR Not Detected (Not Detect); Streptococcus agalactiae(B)PCR Not Detected (Not Detect); Streptococcus by PCR Not Detected (Not Detect); Streptococcus pneumoniae PCR Not Detected (Not Detect); Streptococcus pyogenes (A) PCR Not Detected (Not Detect); blaKPC Carbapenem-Resist Gene Not Detected (Not Detect); mecA Methicillin-Resist Gene DETECTED (Not Detect); vanA/B Vancomycin-Resist Genes Not Detected (Not Detect)
[2019-07-15 13:51] LABS: Staphylococcus by PCR DETECTED (Not Detect)
[2019-07-15 14:27] LABS: Hematocrit 28.2 % (37.5-50.1); Hemoglobin 8.7 g/dL (12.9-16.9); Mean Corpuscular HGB Conc 30.9 g/dL (31.6-35.5); Mean Corpuscular Hemoglobin 26.9 pg (28.0-33.3); Platelet Count 399 K/mcL (140-400); Red Blood Count 3.24 M/mcL (4.19-5.50); Red Cell Distribution Width 17.2 % (11.5-14.5); White Blood Count 9.6 K/mcL (4.3-11.1)
[2019-07-15 14:53] LABS: BUN/Creatinine Ratio 21 (6-26); Blood Urea Nitrogen 21 mg/dL (6-20); Calcium 9.1 mg/dL (8.6-10.3); Carbon Dioxide 22 mEq/L (23-29); Chloride 109 mEq/L (98-107); Glucose 55 mg/dL (70-105); Osmolality,Calculated 297 (280-300); Potassium 4.1 mEq/L (3.5-5.1); Sodium 143 mEq/L (136-145); eGFR For African Americans > 60 (> 60); eGFR For Non-African Americans > 60 (> 60)
[2019-07-15] MEDS ORDERED: Dextrose Gel 15 GM/37.5 ML TUBE PO PRN ×2 (15:30)
[2019-07-15] MEDS ORDERED: *HR* Dextrose 50 % in Water (Syg) 50 ML SYRINGE IVP PRN (15:30)
[2019-07-15] MEDS: D5% in Water 1,000 ML IVC PRN (18:08)
[2019-07-16] MEDS: Morphine Sulfate 2 MG/ML SYRINGE IVP PRN ×4 (03:01→20:06)
[2019-07-16] MEDS: D5% in Water 1,000 ML IVC PRN (05:55)
[2019-07-16] MEDS: Ertapenem 1,000 MG in 0.9 % Sodium Chloride Mini Bag 100 ML IVPB SCH (09:19)
[2019-07-16] MEDS ORDERED: diazePAM 5 MG TABLET PO PRN (11:05)
[2019-07-16 11:17] LABS: Hematocrit 29.8 % (37.5-50.1); Hemoglobin 9.8 g/dL (12.9-16.9); Mean Corpuscular HGB Conc 32.9 g/dL (31.6-35.5); Mean Corpuscular Hemoglobin 27.6 pg (28.0-33.3); Mean Corpuscular Volume 83.9 fL (83.0-100.0); Mean Platelet Volume 10.3 fL (9.4-12.4); Platelet Count 383 K/mcL (140-400); Red Blood Count 3.55 M/mcL (4.19-5.50); Red Cell Distribution Width 16.6 % (11.5-14.5); White Blood Count 11.6 K/mcL (4.3-11.1)
[2019-07-16 11:31] LABS: BUN/Creatinine Ratio 21 (6-26); Blood Urea Nitrogen 15 mg/dL (6-20); Calcium 8.8 mg/dL (8.6-10.3); Carbon Dioxide 24 mEq/L (23-29); Chloride 104 mEq/L (98-107); Glucose 85 mg/dL (70-105); Osmolality,Calculated 286 (280-300); Potassium 4.4 mEq/L (3.5-5.1); Sodium 138 mEq/L (136-145); eGFR For African Americans > 60 (> 60); eGFR For Non-African Americans > 60 (> 60)
[2019-07-16] MEDS: Baclofen 10 MG TABLET PO SCH ×3 (12:59→20:06)
[2019-07-16] MEDS: Gabapentin 400 MG CAPSULE PO SCH ×3 (12:59→20:07)
[2019-07-16] MEDS: traZODone 50 MG TABLET PO SCH (20:06)
[2019-07-16] MEDS: Melatonin 3 MG TABLET PO SCH (20:07)
[2019-07-17 05:16] LABS: Hematocrit 28.3 % (37.5-50.1); Hemoglobin 9.2 g/dL (12.9-16.9); Mean Corpuscular HGB Conc 32.5 g/dL (31.6-35.5); Mean Corpuscular Hemoglobin 27.8 pg (28.0-33.3); Mean Corpuscular Volume 85.5 fL (83.0-100.0); Mean Platelet Volume 10.4 fL (9.4-12.4); Platelet Count 380 K/mcL (140-400); Red Blood Count 3.31 M/mcL (4.19-5.50); Red Cell Distribution Width 16.7 % (11.5-14.5); White Blood Count 8.2 K/mcL (4.3-11.1)
[2019-07-17 05:42] LABS: BUN/Creatinine Ratio 20 (6-26); Blood Urea Nitrogen 16 mg/dL (6-20); Carbon Dioxide 25 mEq/L (23-29); Chloride 105 mEq/L (98-107); Glucose 84 mg/dL (70-105); Osmolality,Calculated 292 (280-300); Potassium 3.3 mEq/L (3.5-5.1); Sodium 141 mEq/L (136-145); eGFR For African Americans > 60 (> 60); eGFR For Non-African Americans > 60 (> 60)
[2019-07-17] MEDS ORDERED: Aminoglycoside Consult 1 EACH MC ONE (07:26)
[2019-07-17] MEDS: Morphine Sulfate 2 MG/ML SYRINGE IVP PRN ×5 (09:41→23:29)
[2019-07-17] MEDS: Baclofen 10 MG TABLET PO SCH ×3 (09:41→21:31)
[2019-07-17] MEDS: Gabapentin 400 MG CAPSULE PO SCH ×3 (09:41→21:31)
[2019-07-17] MEDS: Ertapenem 1,000 MG in 0.9 % Sodium Chloride Mini Bag 100 ML IVPB SCH (09:41)
[2019-07-17] MEDS ORDERED: *HR* Alteplase (Cathflo) 2 MG VIAL IVP ONE (14:20)
[2019-07-17 15:28] LABS: C-Reactive Protein 91 mg/L (Less than 10); Creatine Kinase 63 Units/L (30-223)
[2019-07-17] MEDS: DAPTOmycin 500 MG in 0.9 % Sodium Chloride 100 ML IVPB SCH (16:30)
[2019-07-17] MEDS: Melatonin 3 MG TABLET PO SCH (21:31)
[2019-07-17] MEDS: traZODone 50 MG TABLET PO SCH (21:32)
[2019-07-18] MEDS: Morphine Sulfate 2 MG/ML SYRINGE IVP PRN ×2 (00:39→09:41)
[2019-07-18 04:31] LABS: Hematocrit 26.9 % (37.5-50.1); Hemoglobin 8.7 g/dL (12.9-16.9); Mean Corpuscular HGB Conc 32.3 g/dL (31.6-35.5); Mean Corpuscular Hemoglobin 27.8 pg (28.0-33.3); Mean Corpuscular Volume 85.9 fL (83.0-100.0); Mean Platelet Volume 10.2 fL (9.4-12.4); Platelet Count 360 K/mcL (140-400); Red Blood Count 3.13 M/mcL (4.19-5.50); Red Cell Distribution Width 16.8 % (11.5-14.5); White Blood Count 9.5 K/mcL (4.3-11.1)
[2019-07-18 04:52] LABS: BUN/Creatinine Ratio 21 (6-26); Blood Urea Nitrogen 19 mg/dL (6-20); Calcium 8.8 mg/dL (8.6-10.3); Carbon Dioxide 27 mEq/L (23-29); Chloride 105 mEq/L (98-107); Glucose 99 mg/dL (70-105); Osmolality,Calculated 292 (280-300); Potassium 3.2 mEq/L (3.5-5.1); Sodium 140 mEq/L (136-145); eGFR For African Americans > 60 (> 60); eGFR For Non-African Americans > 60 (> 60)
[2019-07-18] MEDS: Ertapenem 1,000 MG in 0.9 % Sodium Chloride Mini Bag 100 ML IVPB SCH (09:40)
[2019-07-18] MEDS: Gabapentin 400 MG CAPSULE PO SCH ×3 (09:40→21:29)
[2019-07-18] MEDS: Baclofen 10 MG TABLET PO SCH ×3 (09:40→21:30)
[2019-07-18] MEDS ORDERED: *HR* LORazepam 0.5 MG TABLET PO PRN (11:57)
[2019-07-18] MEDS ORDERED: Morphine Sulfate 2 MG/ML SYRINGE IVP PRN (12:06)
[2019-07-18] MEDS: DAPTOmycin 500 MG in 0.9 % Sodium Chloride 100 ML IVPB SCH (15:33)
[2019-07-18] MEDS: *HR* OxyCODONE Immed Rel 5 MG TABLET PO PRN ×2 (15:40→20:54)
[2019-07-18] MEDS: *HR* Heparin 5,000 UNIT/ML VIAL SQ SCH (17:30)
[2019-07-18] MEDS: Melatonin 3 MG TABLET PO SCH (21:29)
[2019-07-18] MEDS: traZODone 50 MG TABLET PO SCH (21:30)
[2019-07-19] MEDS: *HR* OxyCODONE Immed Rel 5 MG TABLET PO PRN ×5 (04:24→23:25)
[2019-07-19] MEDS: *HR* Heparin 5,000 UNIT/ML VIAL SQ SCH ×2 (05:20→17:35)
[2019-07-19 06:06] LABS: Basophils # 0.1 K/mcL (0.0-0.2); Basophils % 0.5 %; Eosinophils % 10.5 %; Hematocrit 28.2 % (37.5-50.1); Hemoglobin 8.9 g/dL (12.9-16.9); Immature Granulocytes % 1.5 % (0-4); Lymphocytes % 20.5 %; Mean Corpuscular HGB Conc 31.6 g/dL (31.6-35.5); Mean Corpuscular Hemoglobin 27.5 pg (28.0-33.3); Mean Platelet Volume 10.3 fL (9.4-12.4); Monocytes # 1.1 K/mcL (0.0-1.3); Monocytes % 10.9 %; Neutrophils # 5.6 K/mcL (1.6-8.9); Platelet Count 366 K/mcL (140-400); Red Blood Count 3.24 M/mcL (4.19-5.50); Red Cell Distribution Width 16.9 % (11.5-14.5); Segmented Neutrophils % 56.1 %
[2019-07-19 07:32] LABS: BUN/Creatinine Ratio 17 (6-26); Blood Urea Nitrogen 15 mg/dL (6-20); Carbon Dioxide 25 mEq/L (23-29); Chloride 105 mEq/L (98-107); Glucose 91 mg/dL (70-105); Osmolality,Calculated 290 (280-300); Potassium 3.9 mEq/L (3.5-5.1); Sodium 140 mEq/L (136-145); eGFR For African Americans > 60 (> 60); eGFR For Non-African Americans > 60 (> 60)
[2019-07-19] MEDS: Ertapenem 1,000 MG in 0.9 % Sodium Chloride Mini Bag 100 ML IVPB SCH (09:33)
[2019-07-19] MEDS: Gabapentin 400 MG CAPSULE PO SCH ×3 (09:35→21:28)
[2019-07-19] MEDS: Baclofen 10 MG TABLET PO SCH ×3 (09:35→21:28)
[2019-07-19] MEDS: DAPTOmycin 500 MG in 0.9 % Sodium Chloride 100 ML IVPB SCH (14:43)
[2019-07-19] MEDS: traZODone 50 MG TABLET PO SCH (21:28)
[2019-07-19] MEDS: Melatonin 3 MG TABLET PO SCH (21:29)
[2019-07-20] MEDS: *HR* Heparin 5,000 UNIT/ML VIAL SQ SCH ×2 (05:00→18:41)
[2019-07-20 06:44] LABS: Basophils % 0.3 %; Hematocrit 30.7 % (37.5-50.1); Hemoglobin 9.6 g/dL (12.9-16.9); Immature Granulocytes % 1.2 % (0-4); Lymphocytes # 1.6 K/mcL (0.6-4.6); Lymphocytes % 14.6 %; Mean Corpuscular HGB Conc 31.3 g/dL (31.6-35.5); Mean Corpuscular Hemoglobin 27.3 pg (28.0-33.3); Mean Corpuscular Volume 87.2 fL (83.0-100.0); Mean Platelet Volume 9.8 fL (9.4-12.4); Monocytes % 9.6 %; Neutrophils # 7.1 K/mcL (1.6-8.9); Platelet Count 360 K/mcL (140-400); Red Blood Count 3.52 M/mcL (4.19-5.50); Red Cell Distribution Width 16.9 % (11.5-14.5); Segmented Neutrophils % 65.3 %; White Blood Count 10.8 K/mcL (4.3-11.1)
[2019-07-20] MEDS: Gabapentin 400 MG CAPSULE PO SCH ×3 (09:35→20:29)
[2019-07-20] MEDS: Sennosides 8.6 MG TABLET PO SCH (09:35)
[2019-07-20] MEDS: *HR* OxyCODONE Immed Rel 5 MG TABLET PO PRN ×3 (09:35→20:29)
[2019-07-20] MEDS: Baclofen 10 MG TABLET PO SCH ×3 (09:35→20:29)
[2019-07-20] MEDS: Ertapenem 1,000 MG in 0.9 % Sodium Chloride Mini Bag 100 ML IVPB SCH (09:35)
[2019-07-20] MEDS ORDERED: Lidocaine 1% 20 ML MDV INFILT ONE (13:17)
[2019-07-20] MEDS: DAPTOmycin 500 MG in 0.9 % Sodium Chloride 100 ML IVPB SCH (15:54)
[2019-07-20] MEDS: traZODone 50 MG TABLET PO SCH (22:09)
[2019-07-20] MEDS: Melatonin 3 MG TABLET PO SCH (22:09)
[2019-07-21] MEDS ORDERED: Acetaminophen IV 500 MG/50 ML INFUS..BTL IVPB ONE (02:58)
[2019-07-21] MEDS: *HR* Heparin 5,000 UNIT/ML VIAL SQ SCH ×2 (03:48→16:32)
[2019-07-21] MEDS: Baclofen 10 MG TABLET PO SCH ×3 (09:37→19:48)
[2019-07-21] MEDS: Gabapentin 400 MG CAPSULE PO SCH ×3 (09:37→19:48)
[2019-07-21] MEDS: Ertapenem 1,000 MG in 0.9 % Sodium Chloride Mini Bag 100 ML IVPB SCH (09:38)
[2019-07-21] MEDS: Sennosides 8.6 MG TABLET PO SCH (09:38)
[2019-07-21] MEDS: *HR* OxyCODONE Immed Rel 5 MG TABLET PO PRN ×3 (09:38→21:39)
[2019-07-21] MEDS: DAPTOmycin 500 MG in 0.9 % Sodium Chloride 100 ML IVPB SCH (16:32)
[2019-07-21] MEDS: traZODone 50 MG TABLET PO SCH (19:47)
[2019-07-21] MEDS: Melatonin 3 MG TABLET PO SCH (19:48)
[2019-07-22] MEDS: *HR* Heparin 5,000 UNIT/ML VIAL SQ SCH ×2 (04:48→17:17)
[2019-07-22 05:57] LABS: Basophils % 0.5 %; Eosinophils # 0.9 K/mcL (0.0-0.6); Hematocrit 31.5 % (37.5-50.1); Hemoglobin 10.3 g/dL (12.9-16.9); Immature Granulocytes % 0.9 % (0-4); Lymphocytes # 1.4 K/mcL (0.6-4.6); Lymphocytes % 16.6 %; Mean Corpuscular HGB Conc 32.7 g/dL (31.6-35.5); Mean Corpuscular Hemoglobin 27.5 pg (28.0-33.3); Mean Corpuscular Volume 84.2 fL (83.0-100.0); Mean Platelet Volume 10.8 fL (9.4-12.4); Monocytes # 0.9 K/mcL (0.0-1.3); Neutrophils # 5.3 K/mcL (1.6-8.9); Platelet Count 393 K/mcL (140-400); Red Blood Count 3.74 M/mcL (4.19-5.50); Red Cell Distribution Width 16.4 % (11.5-14.5); White Blood Count 8.6 K/mcL (4.3-11.1)
[2019-07-22 06:15] LABS: BUN/Creatinine Ratio 27 (6-26); Blood Urea Nitrogen 24 mg/dL (6-20); Calcium 9.5 mg/dL (8.6-10.3); Carbon Dioxide 29 mEq/L (23-29); Chloride 99 mEq/L (98-107); Glucose 93 mg/dL (70-105); Osmolality,Calculated 288 (280-300); Potassium 3.8 mEq/L (3.5-5.1); Sodium 137 mEq/L (136-145); eGFR For African Americans > 60 (> 60); eGFR For Non-African Americans > 60 (> 60)
[2019-07-22] MEDS: Gabapentin 400 MG CAPSULE PO SCH ×3 (09:44→20:53)
[2019-07-22] MEDS: *HR* OxyCODONE Immed Rel 5 MG TABLET PO PRN ×3 (09:44→22:21)
[2019-07-22] MEDS: Sennosides 8.6 MG TABLET PO SCH (09:44)
[2019-07-22] MEDS: Ertapenem 1,000 MG in 0.9 % Sodium Chloride Mini Bag 100 ML IVPB SCH (09:44)
[2019-07-22] MEDS: Baclofen 10 MG TABLET PO SCH ×3 (09:44→20:53)
[2019-07-22] MEDS: DAPTOmycin 500 MG in 0.9 % Sodium Chloride 100 ML IVPB SCH (15:58)
[2019-07-22] MEDS ORDERED: *HR* Alteplase (Cathflo) 2 MG VIAL IVP ONE (16:29)
[2019-07-22] MEDS: traZODone 50 MG TABLET PO SCH (20:52)
[2019-07-22] MEDS: Melatonin 3 MG TABLET PO SCH (20:53)
[2019-07-23] MEDS: *HR* Heparin 5,000 UNIT/ML VIAL SQ SCH ×2 (05:03→16:52)
[2019-07-23] MEDS: *HR* OxyCODONE Immed Rel 5 MG TABLET PO PRN ×3 (06:09→16:50)
[2019-07-23] MEDS ORDERED: Nystatin Ointment 15 GM TUBE TP SCH (09:15)
[2019-07-23] MEDS: Sennosides 8.6 MG TABLET PO SCH (09:35)
[2019-07-23] MEDS: Gabapentin 400 MG CAPSULE PO SCH ×2 (09:35→16:50)
[2019-07-23] MEDS: Ertapenem 1,000 MG in 0.9 % Sodium Chloride Mini Bag 100 ML IVPB SCH (09:35)
[2019-07-23] MEDS: Baclofen 10 MG TABLET PO SCH ×2 (09:35→16:51)
[2019-07-23 16:13] VITALS: BP 108/67
[2019-07-23] MEDS: DAPTOmycin 500 MG in 0.9 % Sodium Chloride 100 ML IVPB SCH (16:51)
== END 2019-07-23 18:25 | DRG 720 ==
LOC: EMEROOARM 07:33 → SUATTDRO 10:44 → 2ANU 10:44
PROVIDERS: ADMIT Internal Medicine; ATTEND Internal Medicine